=== PATIENT | male | born 1970 | race Caucasian/White ===

== ENCOUNTER → 2021-10-31 | Day surgery (SDC) | payer MEDICARE ==
[~2021-10-31] VITALS: Ht 179.1 cm; Wt 99.5 kg
[~2021-10-31] MED LIST: ASPIRIN EC81 MG PO; DEPO-TESTO100 MG/1 M IM; PERCOCET 10/321 EACH PO; PERCOCET 5-3251 EACH PO; PRILOSEC20 MG PO
== END | disposition home or self-care (01) ==
LOC: FAS 09:30
DX: D50.0 Iron deficiency anemia secondary to blood loss (chronic) (principal); K31.89 Other diseases of stomach and duodenum; C83.10 Mantle cell lymphoma, unspecified site; M19.90 Unspecified osteoarthritis, unspecified site; F17.210 Nicotine dependence, cigarettes, uncomplicated; J44.9 Chronic obstructive pulmonary disease, unspecified; Z86.010 Personal history of colon polyps; Z79.82 Long term (current) use of aspirin; Z79.899 Other long term (current) drug therapy; Z88.0 Allergy status to penicillin; Z91.030 Bee allergy status
CPT/HCPCS: J2704; J7120